=== PATIENT | female | born 1950 | race African-American/Black ===

== ENCOUNTER → 2016-10-10 | Outpatient (CLI) | payer MEDICARE, BC ==
[~2016-10-10] MED LIST: ASPI-482 PO; BENA20TA2 PO; BUPR150T20 PO; CLON0.1T PO; CRESTOR10 MG PO; DESV50TA PO; DULO30CA2 PO; DULO60CA6 PO; FENT1PAT91 TD; FOLI1TAB16 PO; FURO40TA4 PO; HYDR25CA75 PO; INSU100V8 SQ; METF10002 PO; METF500T4 PO; METH750T2 PO; OXYC-250 PO; PREG75CA PO; REGADENOSON 0.4 MG/5 ML DISP.SYRIN. IV ONE; VENL75CA6 PO; ZONI25CA PO
--- NOTE | 2016-10-10 12:24 | RAD ---
APPROVED REPORT Test Type: Pharmacological Stress Nurse/Tech: Digna Youngblood R.N. Test Indications: chest pain, CAD Cardiac History: Family history, Hypertension, Diabetes, PTCA Medications: See Electronic Medical Record Medical History: See Electronic Medical Record Resting ECG: NSR Resting Heart Rate: 90 bpm Resting Blood Pressure: 191/100mmHg Pretest Chest Pain: No chest pain Nurse/Tech Notes S1S2, lungs sound clear Consent: The procedure was explained to the patient in lay terms. Informed consent was witnessed. Clement eout was entered into [employer]. History and Stress Test performed by Digna Youngblood R.N. Pharm. Details Pharmacologic stress testing was performed using 0.4mg per 5ml of regadenoson given intravenously ove r 7-10 seconds. Stress Symptoms Dyspnea POST EXERCISE Reason for Termination: Infusion complete Max HR: 123 bpm Max Blood Pressure: 198/91mmHg Blood Pressure response to exercise: Normal blood pressure response during stress. Chest Pain: No. Arrhythmia: No. ST Change: No. INTERPRETATION Stress EKG Conclusion: Baseline EKG showed sinus rhythm. No ischemic changes at peak stress. No arr hythmias. Study quality was good. Left Ventricular size was Normal at Rest and Stress. Lung uptake was Normal. Left Ventricular ejection fraction is 69%. The rest and stress images show normal perfusion, normal contraction and thickening. Conclusion 1. Regadenoson cardioisotope stress test did not show any evidence of ischemia or infarct. 2. Normal left ventricular systolic function with ejection fraction calculated at 69%. 3. Low risk for cardiac events.
--- NOTE | 2016-10-10 12:54 | CARD ---
APPROVED REPORT EXAM: Two-dimensional and M-mode echocardiogram with Doppler and color Doppler. Other Information Quality : Average Rhythm : NSR INDICATION Cardiac Disease: CAD 2D DIMENSIONS RVDd2.4 (2.9-3.5cm)Left Atrium(2D)3.9 (1.6-4.0cm) IVSd1.2 (0.7-1.1cm)Aortic Root(2D)2.7 (2.0-3.7cm) LVDd4.2 (3.9-5.9cm)LVOT Diameter2.1 (1.8-2.4cm) PWd1.3 (0.7-1.1cm)LVDs2.8 (2.5-4.0cm) FS (%) 33.6 %SV50.5 ml LVEF(%)62.7 (>50%) Mitral Valve MV E Xizbuqsw47.8cm/sMV E Peak Gr.6mmHg MV DECEL [id number] A Hwbktisu39.2cm/s MV E Mean Gr.2mmHgMV [id number] E/A Ratio0.6MV A [id number] MVA (PHT)3.93cm2 Pulmonary Vein S1 Ahymmorw66.5cm/sD2 Tqmseskg81.2cm/s LEFT VENTRICLE The left ventricle is normal size. There is borderline concentric left ventricular hypertrophy. Left ventricle systolic function is normal. The Ejection Fraction is 60-65%. There is normal LV segmental wall motion. Tissue Doppler imaging reveals mild left ventricular diastolic dysfunction. Transmitral Doppler flow pattern is Grade I-abnormal relaxation pattern. RIGHT VENTRICLE The right ventricle is normal size. The right ventricular systolic function is normal. ATRIA The left atrium size is normal. The right atrium size is normal. The interatrial septum is intact wit h no evidence for an atrial septal defect or patent foramen ovale as noted on 2-D or Doppler imaging. AORTIC VALVE The aortic valve is normal in structure and function. The aortic valve is trileaflet. Doppler and Col or Flow revealed no significant aortic regurgitation. There is no significant aortic valvular stenosi s. MITRAL VALVE The mitral valve is normal in structure and function. There is no mitral valve stenosis. Doppler and Color Flow revealed no mitral valve regurgitation noted. TRICUSPID VALVE The tricuspid valve is normal in structure and function. Doppler and Color Flow revealed no tricuspid valve regurgitation noted. Unable to estimate PA pressure. There is no tricuspid valve stenosis. PULMONIC VALVE The pulmonic valve is not well visualized. Doppler and Color Flow revealed no pulmonic valvular regur gitation. There is no pulmonic valvular stenosis. GREAT VESSELS The aortic root is normal in size. Normal pulmonary venous flow (Doppler). The IVC is normal in size and collapses <50% with inspiration. PERICARDIAL EFFUSION There is no evidence of significant pericardial effusion. Critical Notification Critical Value: No <Conclusion> Left ventricle systolic function is normal. The Ejection Fraction is 60-65%. There is normal LV segmental wall motion. Transmitral Doppler flow pattern is Grade I-abnormal relaxation pattern. There is no evidence of significant pericardial effusion.
== END | disposition home or self-care (01) ==
LOC: NM 08:02
PROVIDERS: ATTEND Internal Medicine Cardiovascular Disease
DX: I25.118 Atherosclerotic heart disease of native coronary artery with other forms of angina pectoris (principal); Z82.49 Family history of ischemic heart disease and other diseases of the circulatory system; I10 Essential (primary) hypertension; E11.9 Type 2 diabetes mellitus without complications; R07.9 Chest pain, unspecified
CPT/HCPCS: 78452; 93017; 93306; 96374; 96375; 96376; A9500; J2785

== ENCOUNTER → 2018-03-07 | Outpatient (CLI) | payer MEDICARE, BC | END | disposition home or self-care (01) | LOC: ECHO 10:53 | DX: I07.1 Rheumatic tricuspid insufficiency (principal); I27.20 Pulmonary hypertension, unspecified; I25.118 Atherosclerotic heart disease of native coronary artery with other forms of angina pectoris; E11.9 Type 2 diabetes mellitus without complications; I10 Essential (primary) hypertension; E78.5 Hyperlipidemia, unspecified | CPT/HCPCS: 93306 ==

== ENCOUNTER → 2020-08-12 | Outpatient (CLI) | payer MEDICARE, BC ==
[~2020-08-12] MED LIST changes: +AMLO-187 PO; +ATOR20TA58 PO; -BENA20TA2 PO; +BENA20TA4 PO; -BUPR150T20 PO; +BUPR150T27 PO; +GABA300C18 PO; +HYDR-2145 PO; +INSU100V6 SQ; +LIRA0.6P2 SQ; -METF10002 PO; +METF10007 PO; +METF500T16 PO; -METF500T4 PO; -OXYC-250 PO; +OXYC1TAB22 PO; +PREG-9 PO; -PREG75CA PO; -REGADENOSON 0.4 MG/5 ML DISP.SYRIN. IV ONE; +VITA25006 PO; -ZONI25CA PO; +ZONI25CA26 PO
== END ==
LOC: LAB 10:06
PROVIDERS: ATTEND Internal Medicine Cardiovascular Disease
DX: Z01.812 Encounter for preprocedural laboratory examination (principal); R07.9 Chest pain, unspecified; Z20.828 Contact with and (suspected) exposure to other viral communicable diseases
CPT/HCPCS: U0003

== ENCOUNTER 2020-08-14 08:21 | Outpatient (CLI) | payer MEDICARE, BC ==
[~2020-08-14] VITALS: Ht 172.7 cm; Wt 99.8 kg
[2020-08-14] VITALS (10 sets, daily range): BP systolic 118–146; BP diastolic 60–76
[~2020-08-14 08:21] MED LIST changes: -AMLO-187 PO; -ATOR20TA58 PO; -GABA300C18 PO; -HYDR-2145 PO; -INSU100V6 SQ; -LIRA0.6P2 SQ; +METH-562 PO; -METH750T2 PO; -VITA25006 PO
[2020-08-14 08:59] LABS: HEMATOCRIT 35.8 % (36.0-47.0); HEMOGLOBIN 11.9 g/dL (12.0-15.5); RED BLOOD COUNT 4.17 x10^6/uL (3.50-5.40); RED CELL DISTRIBUTION WIDTH 14.3 % (11.5-14.5); WHITE BLOOD COUNT 10.6 x10^3/uL (4.0-11.0)
[2020-08-14] MEDS ORDERED: GABA300C18 PO (09:06)
[2020-08-14] MEDS ORDERED: AMLO-187 PO (09:06)
[2020-08-14] MEDS ORDERED: INSU100V6 SQ (09:06)
[2020-08-14] MEDS ORDERED: VITA25006 PO (09:06)
[2020-08-14] MEDS ORDERED: LIRA0.6P2 SQ (09:06)
[2020-08-14] MEDS ORDERED: HYDR-2145 PO (09:06)
[2020-08-14] MEDS ORDERED: ATOR20TA58 PO (09:06)
[2020-08-14 09:09] LABS: CALCIUM 9.6 mg/dL (8.5-10.1); CREATININE 1.5 mg/dL (0.6-1.0); GFR 41.4
[2020-08-14] MEDS ORDERED: IODIXANOL 320 MG/ML 100 ML VIAL. ONE (09:18)
[2020-08-14] MEDS ORDERED: fentaNYL PF VIAL 250 MCG/5 ML VIAL ONE (09:30)
[2020-08-14] MEDS ORDERED: MIDAZOLAM HCL/PF 5 MG/5 ML VIAL. ONE (09:30)
[2020-08-14] MEDS ORDERED: HEPARIN for IV BOLUS 10,000 UNIT/10 ML VIAL. ONE ×2 (09:30→09:59)
[2020-08-14] MEDS ORDERED: NITROGLYCERIN 200 MCG/2 ML SYRINGE FOR CATH/VASC LAB. ONE ×2 (09:30→09:59)
[2020-08-14] MEDS ORDERED: VERAPAMIL 5 MG/2 ML VIAL. ONE ×2 (09:30→09:59)
[2020-08-14 09:32] LABS: PROTHROMBIN TIME PATIENT 12.8 SEC (11.7-14.0)
[2020-08-14] MEDS ORDERED: LIDOCAINE 1% PF 2 ML VIAL. ONE (09:36)
[2020-08-14] MEDS ORDERED: diphenhydrAMINE 50 MG/ML VIAL ONE (10:15)
[2020-08-14] MEDS ORDERED: MIDAZOLAM HCL/PF 5 MG/5 ML VIAL. IV ONE (10:30)
[2020-08-14] MEDS ORDERED: HEPARIN for IV BOLUS 10,000 UNIT/10 ML VIAL. IART ONE (10:30)
[2020-08-14] MEDS ORDERED: LIDOCAINE 1% PF 2 ML VIAL. INJ ONE (10:30)
[2020-08-14] MEDS ORDERED: diphenhydrAMINE 50 MG/ML VIAL IVP ONE (10:30)
[2020-08-14] MEDS ORDERED: fentaNYL PF VIAL 250 MCG/5 ML VIAL IV ONE (10:30)
[2020-08-14] MEDS ORDERED: IODIXANOL 320 MG/ML 100 ML VIAL. IART ONE (10:30)
[2020-08-14] MEDS ORDERED: NITROGLYCERIN 200 MCG/2 ML SYRINGE FOR CATH/VASC LAB. IART ONE (10:30)
[2020-08-14] MEDS ORDERED: VERAPAMIL 5 MG/2 ML VIAL. IART ONE (10:30)
--- NOTE | 2020-08-14 11:05 | PDOC ---
MODERATE SEDATION ASSESSMENT RISKS/ALTERNATIVES Risks/Alternatives Risks and alternatives of this type of sedation and procedure discussed with: RISK/ALTERNATIVES: Patient H & P ON CHART H & P H & P on chart and reviewed for co-morbid conditions and appropriate labs. H&P ON CHART: Yes STATUS PREG STATUS ASSESSED: N/A MEDS/ALLERGIES REVIEWED Meds/Allergies Reviewed Medications and Allergies including time and route of recently administered narcotics and sedatives. MEDS/ALLERGIES REVIEWED: Yes ASA RATING ASA RATING: II AIRWAY ASSESSMENT Airway Assessment Airway patency, oral function limitations, presence of caps, crowns, dentures, partials, and ability to extend neck assessed. AIRWAY ASSESSMENT: Yes MALLAMPATI SCORE MALLAMPATI SCORE: II PRE-SEDATION ASSESSMENT PRE-SEDATION ASSESSMENT: Yes ANIA BRASWELL MD Aug 14, 2020 11:05
[2020-08-14] MEDS ORDERED: 0.9 % SODIUM CHLORIDE 10 ML DISP.SYRIN. IV PRN (11:15)
[2020-08-14] MEDS ORDERED: IV 1/2 NORMAL SALINE 1,000 ML IV SCH (11:15)
--- NOTE | 2020-08-14 13:53 | NUR ---
TR band dc'd and armband reapplied. Discharge instructions reviewed with pt. Pt ambulated and tolerated PO. Pt transferred to cardiac center for echocardiogram.
--- NOTE | 2020-08-18 10:15 | CARD ---
MR#: [id number] Date of Study: 08/14/2020 Ordering Physician: ANIA BRASWELL, Referring Physician: ANIA BRASWELL Tech: NEO REAVES APPROVED REPORT Technologist: NEO REAVES Nurse: Shilpa Garrison R.N. AND NEREIDA JETT Procedure(s) performed: Left heart catheterization, selective coronary angiography and left ventricul ography via transradial access MODERATE SEDATION TIME: 22 MINUTES FLUORO TIME: 3.7 MIN DOSE: 94.8 GYCM2 CONTRAST: 132CC VISI BLOOD LOSS: < 5ML INDICATION The indication(s) include : unstable angina . CSHA Clinical Frailty Scale CS Clinical Frailty Scale: Managing Well Heart Failure Heart Failure: Yes If Yes, Newly Diagnosed: No If Yes, HF Type: Diastolic If Yes, NYHA Class: Class II PROCEDURE NARRATIVE After explaining the risks, benefits and alternative options, informed consent was obtained from don ent. Patient was brought to the cardiac Grant [facility] and right wrist was prepped and draped in the usual fashion after confirming a positive modified Jayson's test. Arterial access was obtained in the righ t radial artery and a 6 Kazakh sheath was inserted. 6 Kazakh Fermin catheter was used to perform ana maria ective angiography of the left and right coronary arteries. 6 Kazakh pigtail catheter was used to pe rform left ventriculography. Patient tolerated the procedure well. Hemostasis was achieved using TR band. There were no immediate complications. The following findings were noted. FINDINGS 1. Hemodynamics: Left ventricular end-diastolic pressure of 15 mmHg. No pullback gradient across th e aortic valve. 2. Left ventriculography: Normal left ventricle systolic function with ejection fraction estimated at 60%. No significant mitral regurgitation seen. 3. Coronary angiography: a. The left main coronary artery arose from the left sinus of Valsalva, gave rise to the left anteri or descending and left circumflex arteries and did not show any significant stenosis. b. The left anterior descending artery showed stent in proximal to mid segment with 30% instent rest enosis in proximal portion of the stent. c. The left circumflex artery did not show any significant stenosis. d. The right coronary artery was a dominant vessel arising from the right sinus of Valsalva that did not show any significant stenosis. Conclusion 1. 30% in-stent restenosis involving the left anterior descending artery. No lesions needing interv ention were noted. 2. Normal left ventricle systolic function with ejection fraction estimated at 60%. Recommendations Medical Therapy Signed by : Ania Braswell, Electronically Approved : 08/14/2020 11:04:38
--- NOTE | 2020-08-18 10:16 | CARD ---
MR#: [id number] Date of Study: 08/14/2020 Ordering Physician: ANIA BRASWELL, Referring Physician: ANIA BRASWELL Tech: [facility] APPROVED REPORT EXAM: Two-dimensional and M-mode echocardiogram with Doppler and color Doppler. Other Information Quality : AverageHR: 81bpm Rhythm : NSRTechnically limited study due to body habitus. INDICATION HTN RISK FACTORS Hypertension Obesity Hyperlipidemia 2D DIMENSIONS RVDd2.5 (2.9-3.5cm)Left Atrium(2D)4.0 (1.6-4.0cm) IVSd1.0 (0.7-1.1cm)Aortic Root(2D)3.2 (2.0-3.7cm) LVDd4.5 (3.9-5.9cm)LVOT Diameter2.1 (1.8-2.4cm) PWd1.1 (0.7-1.1cm)LVDs2.5 (2.5-4.0cm) FS (%) 43.3 %SV68.0 ml LVEF(%)74.6 (>50%) Aortic Valve AoV Peak Petey.159.7cm/sAoV VTI29.2cm AO Peak GR.10.2mmHgLVOT Peak Petey.121.2cm/s AO Mean GR.5mmHgAVA (VMAX)2.58cm2 Mitral Valve MV E Fkcvllcn51.0cm/sMV DECEL [id number] MV A Sfpadajs25.3cm/sE/A Ratio0.8 Pulmonary Valve PV Peak Krdnwzsu773.7cm/s Tricuspid Valve TR P. Trswlhcu176pt/sTR Peak Gr.26mmHg LEFT VENTRICLE The left ventricle is normal size. There is borderline concentric left ventricular hypertrophy. The l eft ventricular systolic function is normal and the ejection fraction is within normal range. Estimat ed ejection 60-65%. There is normal LV segmental wall motion. The left ventricular diastolic function and filling is normal for age. RIGHT VENTRICLE The right ventricle is normal size. There is normal right ventricular wall thickness. The right ventr icular systolic function is normal. ATRIA The left atrium size is normal. The right atrium size is normal. The interatrial septum is intact wit h no evidence for an atrial septal defect or patent foramen ovale as noted on 2-D or Doppler imaging. AORTIC VALVE The aortic valve is normal in structure and function. Doppler and Color Flow revealed no significant aortic regurgitation. There is no significant aortic valvular stenosis. MITRAL VALVE The mitral valve is normal in structure and function. There is no evidence of mitral valve prolapse. There is no mitral valve stenosis. Doppler and Color-flow revealed trace mitral regurgitation. TRICUSPID VALVE The tricuspid valve is normal in structure and function. Doppler and Color Flow revealed trace tricus pid regurgitation. Estimated PAP 29mmHG. There is no tricuspid valve stenosis. PULMONIC VALVE Not well visualized. GREAT VESSELS The aortic root is normal in size. The IVC is normal in size and collapses >50% with inspiration. PERICARDIAL EFFUSION There is no evidence of significant pericardial effusion. Critical Notification Critical Value: No <Conclusion> The left ventricular systolic function is normal and the ejection fraction is within normal range. E stimated ejection 60-65%. There is normal LV segmental wall motion. Signed by : Patrice Wallace, Electronically Approved : 08/16/2020 08:15:32
== END 2020-08-14 13:55 | disposition home or self-care (01) ==
LOC: CCL 08:21
PROVIDERS: ATTEND Internal Medicine Cardiovascular Disease
DX: I25.110 Atherosclerotic heart disease of native coronary artery with unstable angina pectoris (principal); E78.00 Pure hypercholesterolemia, unspecified; I10 Essential (primary) hypertension; E11.42 Type 2 diabetes mellitus with diabetic polyneuropathy; M19.90 Unspecified osteoarthritis, unspecified site; E66.9 Obesity, unspecified; F32.9 Major depressive disorder, single episode, unspecified; Z87.440 Personal history of urinary (tract) infections; Z90.49 Acquired absence of other specified parts of digestive tract; Z98.890 Other specified postprocedural states; Z98.51 Tubal ligation status; Z79.82 Long term (current) use of aspirin; Z79.4 Long term (current) use of insulin; Z79.899 Other long term (current) drug therapy; Z87.891 Personal history of nicotine dependence; Z88.0 Allergy status to penicillin; Z68.33 Body mass index [BMI] 33.0-33.9, adult
CPT/HCPCS: 36415; 80048; 85027; 85610; 93306; 93458; 99152; C1769; C1892; J1200; J1644; J2250; J3010; J3490; Q9967; 99153

== ENCOUNTER → 2020-09-10 | Outpatient (CLI) | payer MEDICARE, BC ==
[2020-08-14 13:00] VITALS: BP 130/63
[~2020-09-10] MED LIST changes: +AMLO-187 PO; +ATOR20TA58 PO; +GABA300C18 PO; +HYDR-2145 PO; +INSU100V6 SQ; +LIRA0.6P2 SQ; +VITA25006 PO
--- NOTE | 2020-09-10 15:24 | RAD ---
MR#: [id number] Date of Study: 09/10/2020 Ordering Physician: ANIA BRASWELL, Referring Physician: ANIA BRASWELL, Tech: APPROVED REPORT Patient Location: OUT-PATIENT Indications Uncontrolled HTN Risk Factors Hypertension Renal Artery Doppler Right Renal Artery Left Renal Arter y Proximal 97.6/ cm/secProximal 75.1/ cm/sec Mid 88.5/ cm/secMid 51.8/ cm/sec Distal 63.6/ cm/secDistal 53.5/ cm/sec Renal/Aorta Ratio 1.16Renal/Aorta Ratio 0.00 Prox. Resistive Index 0.83Prox. Resistive Index Mid Resistive Index 0.76Mid Resistive Index Distal Resistive Index 0.77Distal Resistive Index Renal Measurements RightLeft Kidney Length9.42 cm cmKidney Length9.63 cm cm Right Additional FindingsLeft Additional Findings Aortic Doppler VelocityWaveform Proximal Aorta 84.3 cm/sec Findings Grayscale images of the bilateral kidneys, aortic and renal vessels are limited but grossly no obviou s abnormalities are noted. There is moderate atherosclerosis in the vasculature. Bilateral proximal, mid and distal renal artery velocities are as noted above and within normal limit s. Normal resistive indices and normal renal to aortic ratios. No obvious renal artery stenosis is identified. Critical Notification Critical Value: No <Conclusion> 1. No significant renal artery stenosis noted. Signed by : Patrice Wallace, Electronically Approved : 09/10/2020 15:23:50
== END ==
LOC: US 10:14
PROVIDERS: ATTEND Internal Medicine Cardiovascular Disease
DX: I10 Essential (primary) hypertension (principal); I70.1 Atherosclerosis of renal artery
CPT/HCPCS: 93975